=== PATIENT | male | born 1955 | race Caucasian/White ===

== ENCOUNTER 2018-11-27 09:54 | Emergency (ER) | payer OTHER ==
--- NOTE | 2018-11-27 10:50 | ED Physician Documentation ---
PD HPI UPPER EXT INJURY - Stated complaint Stated Complaint: RT HAND INJ - Chief complaint Chief Complaint: Ext Problem - History obtained from History obtained from: Patient - History of Present Illness Location: Right, Wrist, Hand Type of injury: Fall (he was carrying 2x12 heavy board and fell, landing onto ground with board in hand, so had struck ground with board and his weight landing onto it. Pain and swelling of the hand.) Where injury occurred: Work Timing - details: Abrupt onset, Still present Improved by: Rest Worsened by: Moving, Palpating Review of Systems Skin: denies: Abrasion (s), Laceration (s) Neurologic: reports: Focal weakness (hand feels weak but limited by pain of movement.). denies: Numbness PD PAST MEDICAL HISTORY - Past Medical History Cardiovascular: None Respiratory: None Endocrine/Autoimmune: None GI: None : None HEENT: None Psych: None Musculoskeletal: None Derm: None - Past Surgical History Past Surgical History: Yes Ortho: Knee replacement - Present Medications Home Medications: Ambulatory Orders Medication Instructions Recorded Confirmed Hydrocodone/Acetaminophen [[place] 1 each PO Q6H PRN #20 tablet 12/29/15 5-325 Tablet] Ibuprofen [Motrin] 200 mg PO Q8HR 12/29/15 12/29/15 Methocarbamol [Robaxin] 500 mg PO Q6H PRN #25 tablet 12/29/15 dexAMETHasone [Decadron] 4 mg PO DAILY #5 tablet 12/29/15 Oxycodone HCl/Acetaminophen 1 each PO Q6H PRN #18 tablet 11/27/18 [Percocet 5-325 mg Tablet] - Allergies Allergies/Adverse Reactions: Allergies Allergy/AdvReac Type Severity Reaction Status Date / Time No Known Drug Allergies Allergy Verified 11/27/18 10:12 - Social History Does the pt smoke?: No Smoking Status: Never smoker Does the pt drink ETOH?: No Does the pt have substance abuse?: No - Immunizations Immunizations are current?: Yes - POLST Patient has POLST: No PD ED PE NORMAL - Vitals Vital signs reviewed: Yes - General General: Alert and oriented X 3, No acute distress, Well developed/nourished - Derm Derm: Normal color, Warm and dry - Extremities Extremities: Other (right hand dorsum on hand and distal wrist with swelling and tenderness, some bruising. Tender mostly near thenar area. Weaker movement due to swelling but able to flex and extend fingers and thumb. ) - Neuro Neuro: No motor deficit, No sensory deficit Results - Vitals Vitals: Vital Signs - 24 hr 11/27/18 11/27/18 09:55 11:48 Temperature 36.8 C Heart Rate 87 69 Respiratory 17 16 Rate Blood Pressure 150/110 H 159/106 H O2 Saturation 100 98 Oxygen O2 Source Room air - Rads (name of study) right hand Radiology: Prelim report reviewed, EMP read contemporaneously (no fractures. ), See rad report PD MEDICAL DECISION MAKING - ED course Complexity details: considered differential, d/w patient Departure - Departure Disposition: 01 Home, Self Care Clinical Impression: Sprain of hand, right Qualifiers: Encounter type: initial encounter Qualified Code(s): S63.91XA - Sprain of unspecified part of right wrist and hand, initial encounter Condition: Stable Record reviewed to determine appropriate education?: Yes Instructions: ED Sprain Hand Prescriptions: Oxycodone HCl/Acetaminophen [Percocet 5-325 mg Tablet] 1 each PO Q6H PRN #18 tablet PRN Reason: pain Comments: Use the wrist splint for the next week or 2 until fully improved. Less use of the hand and wrist the next few days to reduce swelling. Use some anti-inflammatories such as ibuprofen or naproxen 2-3 times daily for the next several days. Add Tylenol or Percocet if needed for pain. Follow-up with your primary care if not improved over a week. The radiologist thought the small specks of calcification I saw were old tendon calcifications and not acute fractures. It still may represent some new injury but are not large enough or significant to treat differently than as a sprain. Discharge Date/Time: 11/27/18 11:57
[2018-11-27] MEDS ORDERED: IBUPROFEN 600 MG TABLET PO STA (10:58)
[2018-11-27] MEDS ORDERED: ACETAMINOPHEN 325 MG TABLET PO STA (10:58)
--- NOTE | 2018-11-27 11:18 | XRAY Report ---
Reason: injury Procedure Date: 11/27/2018 Accession Number: [id number] / [id number] Procedure: XR - Hand 3 View RT CPT Code: FULL RESULT: EXAM: RIGHT HAND RADIOGRAPHY EXAM DATE: 11/27/2018 10:35 AM. CLINICAL HISTORY: Right hand pain. COMPARISON: None. TECHNIQUE: 3 views. FINDINGS: Bones: Bones are osteopenic. No fractures or bone lesions. Joints: Degenerative changes are seen in the interphalangeal joints and radial aspect of the wrist joints. Alignment is preserved. Soft Tissues: Chondrocalcinosis is seen mostly in the triangular fibrocartilage region. IMPRESSION: No acute findings. [facility]
--- NOTE | 2018-11-27 11:20 | XRAY Report ---
Reason: injury Procedure Date: 11/27/2018 Accession Number: [id number] / [id number] Procedure: XR - Forearm RT CPT Code: FULL RESULT: EXAM: RIGHT FOREARM RADIOGRAPHY EXAM DATE: 11/27/2018 10:37 AM. CLINICAL HISTORY: Right forearm pain. COMPARISON: None. TECHNIQUE: 2 views. FINDINGS: Bones: Bones are osteopenic. No fractures or bone lesions. Joints: Minor degenerative changes are seen in the elbow and wrist joints. Soft Tissues: Normal. No soft tissue swelling. IMPRESSION: No acute osseous abnormality demonstrated. [facility]
[2018-11-27 11:50] VITALS: BP 159/106
== END 2018-11-27 11:57 | disposition home or self-care (01) ==
LOC: ED 09:54
DX: S63.91XA Sprain of unspecified part of right wrist and hand, initial encounter (principal); W18.30XA Fall on same level, unspecified, initial encounter; Y93.89 Activity, other specified
CPT/HCPCS: 73090; 73130; 99283; A9270